=== PATIENT | female | born 1935 | race Caucasian/White ===

== ENCOUNTER 2016-08-14 11:02 | Observation (INO) ==
--- NOTE | 2016-08-14 11:13 | Emergency Department Note ---
Disposition Clinical Impression: Generalized weakness Chest wall contusion Qualifiers: Encounter type: initial encounter Laterality: left Qualified Code(s): S20.212A - Contusion of left front wall of thorax, initial encounter Disposition: Admitted As Inpatient Condition: Fair Referrals: Geoffrey Rudolph MD [Primary Care Provider] - Forms: ED Satisfaction Letter Time of Disposition: 13:19 Fall HPI - General Chief Complaint: ED Fall Stated Complaint: fall Time Seen by Provider: 08/14/16 11:07 Source: patient, EMS Mode of arrival: EMS Limitations: no limitations Nursing Notes Reviewed: Yes Vital Signs Reviewed: Yes - History of Present Illness HPI Narrative: 81-year-old states that she slid off the toilet hitting the paper rack on her left side of her chest. She was seen by her family doctor yesterday but no x- rays were done. She was started on some pain medication today she's dizzy cannot ambulate. Pt Subjective Complaint: fall Onset (ago): day(s) (2 days) Fall From: other (toilet) Fall Witnessed: no Place Fall Occurred: home Loss of Consciousness: none Prolonged Down Time?: no Symptoms Prior to Fall: none Context: tripped/slipped Location of injury: chest Severity: moderate Quality: aching Associated symptoms (after fall): Reports: denies - Related Data Allergies Allergy/AdvReac Type Severity Reaction Status Date / Time No Known Allergies Allergy Unverified 12/12/14 16:35 All systems ED: reviewed and negative except as stated. Constitutional: Denies: fever, chills, weakness, weight change Eyes: Denies: eye pain, eye discharge, vision change ENT ED: Denies: ear pain, throat pain, dental pain, hearing loss, epistaxis, congestion, dysphagia Cardiovascular: Reports: chest pain. Denies: palpitations, dyspnea on exertion , edema, syncope Respiratory: Denies: cough, dyspnea, wheezes, hemoptysis, stridor Gastrointestinal: Denies: abdominal pain, nausea, vomiting, diarrhea, constipation, hematemesis, melena, hematochezia Genitourinary: Denies: dysuria, frequency, hematuria, discharge Musculoskeletal: Denies: back pain, neck pain, arthralgia, myalgia Integumentary: Denies: rash, abrasion, lesions Neurological: Reports: other (Dizziness). Denies: headache, weakness, numbness , paresthesias, confusion, abnormal gait, vertigo Psychiatric: Denies: anxiety, depression, suicidal thoughts, homicidal thoughts , auditory hallucinations, visual hallucinations Endocrine: Denies: fatigue Hematological/Lymphatic: Denies: easy bleeding, easy bruising Allergic/Immunologic: Denies: facial swelling, urticaria Fall PMH - Past Medical History Medical history: Reports: osteoporosis, thyroid disease Surgical history: Reports: cataract Psychiatric history: Reports: no psych history COVER OPERATOR history: Reports: no COVER OPERATOR history - Social History Smoking Status: Never smoker Alcohol use: Reports: none Drug use: Reports: none Physical Exam - General Limitations: no limitations General appearance: alert, in no apparent distress - Head Head exam: atraumatic, normocephalic, normal inspection - Eye Eye exam: Present: normal appearance, PERRL, EOMI - Expanded Eye Exam Pupils: Left: reactive - ENT ENT exam: normal exam, normal oropharynx, mucous membranes moist - Expanded ENT Exam External ear exam: Present: normal external inspection Mouth exam: Present: normal external inspection Teeth exam: Present: normal inspection Throat exam: Present: normal inspection - Neck Neck exam: Present: normal inspection, full ROM, trachea midline - Chest Chest inspection: Present: normal inspection, symmetric chest wall rise, tenderness (Left side) - Respiratory Respiratory exam: Present: normal lung sounds bilaterally - Cardiovascular Cardiovascular exam: Present: regular rate, normal rhythm, normal heart sounds - Abdominal Exam Abdominal exam: Present: soft, Non-Tender. Absent: tenderness, distention, guarding, rebound, rigidity - Extremities Exam Extremities exam: Present: normal inspection, full ROM. Absent: tenderness, pedal edema - Expanded Upper Extremity Exam Shoulder exam: Present: normal inspection, full ROM Arm exam: Present: normal inspection, full ROM Elbow exam: Present: normal inspection, full ROM Forearm/Wrist exam: Present: normal inspection, full ROM Hand exam: Present: normal inspection, full ROM Vascular exam: Normal: capillary refill, radial pulse - Expanded Lower Extremity Exam Hip/Pelvis exam: Present: normal inspection, full ROM Upper leg exam: Present: normal inspection, full ROM Knee exam: Present: normal inspection, full ROM Lower leg exam: Present: normal inspection, full ROM Ankle exam: Present: normal inspection, full ROM Foot/toe exam: Present: normal inspection, full ROM Neurovascular/Tendon exam: Absent: motor deficit, sensory deficit, tendon deficit - Back Exam Back exam: Present: normal inspection, full ROM. Absent: tenderness - Neurological Exam Neurological exam: Present: alert, oriented X3 - Expanded Neurological Exam Patient oriented to: Present: person, place, time Coma Scale Eye Opening: Spontaneous Coma Scale Motor Response: Obeys Commands Coma Scale Verbal Response: Oriented Coma Scale Total: 15 - Psychiatric Psychiatric exam: Present: normal affect, normal mood - Skin Skin exam: Present: warm, dry, intact, normal color Course - Reevaluation(s) Reevaluation #1: 81-year-old female who fell injuring her left chest wall. Patient is generally weak and has no ability to ambulate. She lives by herself with no family members around. For safety she will require admission and PT OT evaluation possible ECF placement. Time: 13:18 - Consultations Consultation #1: Discussed with Dr. Middleton. Time: 13:17 Vital Signs Temperature 97.4 F L 08/14/16 11:08 Pulse Rate 50 08/14/16 11:08 Respiratory Rate 20 08/14/16 11:08 Blood Pressure 136/62 08/14/16 11:08 O2 Sat by Pulse Oximetry 100 08/14/16 11:08 Temperature 97.4 F L 08/14/16 11:08 Pulse Rate 48 08/14/16 12:30 Respiratory Rate 18 08/14/16 12:30 Blood Pressure 120/56 08/14/16 12:30 O2 Sat by Pulse Oximetry 98 08/14/16 12:30 Oxygen Delivery Oxygen Delivery Room Air Fall - Lab Data Lab results reviewed: Yes I reviewed the patient's lab results. Result diagrams: 08/14/16 12:15 08/14/16 12:15 Lab Results 08/14/16 08/14/16 08/14/16 Range/Units 12:15 12:15 12:15 WBC 5.0 (4.3-11.1) K/mcL RBC 3.65 L (3.82-4.97) M/mcL Hgb 11.1 L (11.5-15.4) g/dL Hct 35.7 (35.3-44.9) % MCV 97.8 (83.0-100.0) fL MCH 30.4 (28.0-33.3) pg MCHC 31.1 L (31.6-35.5) g/dL RDW 13.4 (11.5-14.5) % Plt Count 132 L (140-400) K/mcL MPV 9.7 (9.4-12.4) fL Immature Gran % 0.4 (0-4) % Seg Neutrophils % 90.8 % Lymphocytes % 6.6 % Monocytes % 1.8 % Eosinophils % 0.0 % Basophils % 0.4 % Neutrophils # 4.6 (1.6-8.9) K/mcL Lymphocytes # 0.3 L (0.6-4.6) K/mcL Monocytes # 0.1 (0.0-1.3) K/mcL Eosinophils # 0.0 (0.0-0.6) K/mcL Basophils # 0.0 (0.0-0.2) K/mcL Sodium 140 (136-145) mEq/L Potassium 4.0 (3.5-4.5) mEq/L Chloride 103 (98-109) mEq/L Carbon Dioxide 31 H (19-29) mEq/L BUN 18 (7-20) mg/dL Creatinine 0.69 (0.57-1.11) mg/dL Est GFR ( Amer) > 60 (> 60) Est GFR (Non-Af Amer) > 60 (> 60) BUN/Creatinine Ratio 26 (6-26) Glucose 146 H (70-99) mg/dL Calculated Osmolality 295 (280-300) Calcium 9.2 (8.6-10.8) mg/dL Troponin I 0.00 (0-0.03) ng/mL - Radiology Data Radiology results reviewed: Yes I reviewed the patient's radiology results. Cervical Spine CT 08/14/16 11:09 IMPRESSION: No acute abnormality of the cervical spine. D/ / Lenny Ordoñez MD / Lenny Ordoñez MD Interpreting Provider: Lenny Ordoñez MD Chest CT 08/14/16 11:09 IMPRESSION: No acute abnormalities identified. Atherosclerosis to include coronary artery disease. Punctate nonobstructing stone to the mid region of the left kidney. D/ / 08/14/2016 12:02:39 Adebayo Cuba MD / bcarter Interpreting Provider: Adebayo Cuba MD Head CT 08/14/16 11:09 IMPRESSION: No acute intracranial abnormality. D/ / Charles Koo MD / Chalres Koo MD Interpreting Provider: Charles Koo MD - EKG Data EKG attestation: Yes I reviewed and interpreted this EKG. EKG shows normal: sinus rhythm Rate: bradycardia Rhythm: NSR Interpretation: no acute changes NIH Stroke Scale - Level of Consciousness LOC: Alert - LOC Questions LOC Questions: Answers both correctly - LOC Commands LOC Commands: Performs both correctly - Best Gaze Best Gaze: Normal - Visual Visual: No visual loss - Facial Palsy Facial Palsy: Normal - Motor Arms Motor Arm-Left: No drift for 10 seconds Motor Arm-Right: No drift for 10 seconds - Motor Legs Motor Leg-Left: No drift for 5 seconds Motor Leg-Right: No drift for 5 seconds - Limb Ataxia Limb Ataxia: Normal, No Ataxia - Sensory Sensory: Normal - Best Language Best Language: No aphasia - Dysarthria Dysarthria: Normal - Extinction and Inattention Extinction and Inattention: Normal - NIHSS Total Score NIHSS Total Score: 0
[2016-08-14 12:29] LABS: Basophils % 0.4 %; Hematocrit 35.7 % (35.3-44.9); Hemoglobin 11.1 g/dL (11.5-15.4); Immature Granulocytes % 0.4 % (0-4); Lymphocytes # 0.3 K/mcL (0.6-4.6); Lymphocytes % 6.6 %; Mean Corpuscular HGB Conc 31.1 g/dL (31.6-35.5); Mean Corpuscular Hemoglobin 30.4 pg (28.0-33.3); Mean Corpuscular Volume 97.8 fL (83.0-100.0); Mean Platelet Volume 9.7 fL (9.4-12.4); Monocytes # 0.1 K/mcL (0.0-1.3); Monocytes % 1.8 %; Neutrophils # 4.6 K/mcL (1.6-8.9); Platelet Count 132 K/mcL (140-400); Red Blood Count 3.65 M/mcL (3.82-4.97); Red Cell Distribution Width 13.4 % (11.5-14.5); Segmented Neutrophils % 90.8 %
[2016-08-14 12:39] LABS: BUN/Creatinine Ratio 26 (6-26); Blood Urea Nitrogen 18 mg/dL (7-20); Calcium 9.2 mg/dL (8.6-10.8); Carbon Dioxide 31 mEq/L (19-29); Chloride 103 mEq/L (98-109); Glucose 146 mg/dL (70-99); Osmolality,Calculated 295 (280-300); Sodium 140 mEq/L (136-145); eGFR For African Americans > 60 (> 60); eGFR For Non-African Americans > 60 (> 60)
--- NOTE | 2016-08-14 15:15 | Internal Med History&Physical ---
Date of Encounter: 08/14/16 Time of Encounter: 15:12 Assessment and Plan (1) Fall Current visit: Yes Status: Acute History of recurrent falls. head, neck and CT chest does not show any acute pathology with no fractures. will need placement to inpt. rehab given high fall risk. 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 Qualifiers: Hypothyroidism type: unspecified Qualified Code(s): E03.9 - Hypothyroidism , unspecified (4) Osteoporosis Current visit: Yes Status: Acute We will continue home medications. Qualifiers: Osteoporosis type: unspecified Presence of current pathological fracture: without current pathological fracture Qualified Code(s): M81.0 - Age-related osteoporosis without current pathological fracture Internal Medicine - H&P: HPI Chief complaint: fall Admitted From: Home Plans for Post Hospital Care: Home History of present illness: Ms. Wakefield is a 81 year old female with past medical history of hypothyroidism , osteoporosis and hyperlipidemia was presented to ED status post fall. She said she fell today morning. she slid off the toilet hitting the paper rack on her left side of her chest. She was seen by her family doctor yesterday but no x-rays were done. She was started on some pain medication. she denies hitting her head or LOC. However she says the pain is worse and today she's dizzy and cannot ambulate. She denies any cough or fever or shortness of breath. No loss of consciousness or seizures. She lives by herself with no home health or any other assistance. At this time she is being admitted for possible need for placement given unsafe discharge as she is high fall risk. Past Med Surg Social Fam HX - Past Medical History Medical history: osteoporosis, thyroid disease Psychiatric history: no psych history - Past Surgical History Surgical History: cataract - Social History Smoking Status: Never smoker Smokeless Tobacco Status: No Alcohol use: none Drug use: none Internal Medicine - H&P: Meds Acetaminophen w/Cod 300-30 mg [Tylenol w/Codeine #3] 1 tab PO BID PRN 08/14/16 [ History] Alendronate Sodium [Fosamax] 70 mg PO MO 08/14/16 [History] Calcium Carbonate/Vitamin D3 [Calcium 500-Vit D3 600 Tablet] 1 tab PO DAILY 04/20 [History] Levothyroxine [Synthroid] 25 mcg PO DAILY 08/14/16 [History] Multivit-Min/Iron/Folic/Lutein [Centrum Silver Women Tablet] 1 tab PO DAILY 04/20 [History] [place]-3/Dha/Epa/Fish Oil [Fish Oil 1,000 mg Softgel] 1,000 mg PO DAILY 08/14/16 [History] Allergies Erythromycin Base Adverse Reaction (Verified 08/14/16 14:20) Diarrhea All Systems PM: A 10-system review of systems was performed and is negative for pertinent findings except as documented above in the HPI. - Constitutional Constitutional: lethargy, weakness - EENT Eyes: no change in vision, no discharge, no pain, no photophobia Ears: no ear discharge, no ear pain, no tinnitus Nose, mouth and throat: no dysphagia, no nasal discharge, no neck pain, no sore throat - Cardiovascular Cardiovascular ROS IM: no chest pain, no diaphoresis, no dyspnea, no lightheadedness, no palpitations, no syncope - Respiratory Respiratory: no cough, no dyspnea, no wheezing, no excessive phlegm production - Gastrointestinal Gastrointestinal: no abdominal pain, no diarrhea, no hematemesis, no hematochezia, no melena, no nausea, no vomiting - Genitourinary Genitourinary: no change in urinary stream, no dysuria, no flank pain, no hematuria - Musculoskeletal Musculoskeletal ROS IM: no numbness, no tingling - Constitutional Vitals: Temp Pulse Resp BP Pulse Ox 97.4 F L 53 18 116/48 100 08/14/16 11:08 08/14/16 13:30 08/14/16 14:41 08/14/16 14:41 08/14/16 13:30 General appearance: Present: A&O X 3, no acute distress Exam: - Head Head exam: atraumatic, normocephalic, normal inspection - Eye Eye exam: Present: normal appearance, PERRL, EOMI - ENT ENT exam: normal exam, normal oropharynx, mucous membranes moist - Neck Neck exam: Present: normal inspection, full ROM, trachea midline - Respiratory Respiratory exam: Present: normal lung sounds bilaterally - Cardiovascular Cardiovascular exam: Present: regular rate, normal rhythm, normal heart sounds - Abdominal Exam Abdominal exam: Present: soft, Non-Tender. Absent: tenderness, distention, guarding, rebound, rigidity - Extremities Exam Extremities exam: Present: normal inspection, full ROM. Absent: tenderness, pedal edema - - Back Exam Back exam: Present: lateral scoliosis, full ROM. Absent: tenderness - Neurological Exam Neurological exam: Present: alert, oriented X3 - Psychiatric Psychiatric exam: Present: normal affect, normal mood - Skin Skin exam: Present: warm, dry, intact, normal color Internal Med - H&P Results - Labs CBC & Chem 7: 08/14/16 12:15 08/14/16 12:15
[2016-08-14] MEDS ORDERED: Ketorolac 30 MG/ML VIAL IVP PRN (15:19)
[2016-08-14] MEDS ORDERED: Naloxone 0.4 MG/ML INJ IVP PRN (15:19)
[2016-08-14] MEDS ORDERED: *HR* Acetaminophen w/Cod 300-30 mg 1 TAB TABLET PO PRN (15:22)
[2016-08-15] MEDS: *HR* Enoxaparin 40 MG/0.4 ML SYRINGE SQ SCH (05:24)
[2016-08-15 05:52] LABS: Basophils % 0.5 %; Eosinophils % 0.8 %; Hematocrit 31.6 % (35.3-44.9); Immature Granulocytes % 0.3 % (0-4); Lymphocytes # 0.8 K/mcL (0.6-4.6); Lymphocytes % 22.2 %; Mean Corpuscular HGB Conc 31.6 g/dL (31.6-35.5); Mean Corpuscular Hemoglobin 31.2 pg (28.0-33.3); Mean Corpuscular Volume 98.4 fL (83.0-100.0); Mean Platelet Volume 10.3 fL (9.4-12.4); Monocytes # 0.4 K/mcL (0.0-1.3); Monocytes % 10.3 %; Neutrophils # 2.5 K/mcL (1.6-8.9); Platelet Count 123 K/mcL (140-400); Red Blood Count 3.21 M/mcL (3.82-4.97); Red Cell Distribution Width 13.8 % (11.5-14.5); Segmented Neutrophils % 65.9 %
[2016-08-15 06:01] LABS: BUN/Creatinine Ratio 29 (6-26); Blood Urea Nitrogen 21 mg/dL (7-20); Calcium 9.1 mg/dL (8.6-10.8); Carbon Dioxide 30 mEq/L (19-29); Chloride 104 mEq/L (98-109); Glucose 82 mg/dL (70-99); Osmolality,Calculated 292 (280-300); Phosphorous 2.1 mg/dL (2.3-4.7); Sodium 140 mEq/L (136-145); eGFR For African Americans > 60 (> 60); eGFR For Non-African Americans > 60 (> 60)
--- NOTE | 2016-08-15 07:05 | Electrocardiograph Report ---
[address] [place] [address] Test Date: 2016-08-14 Pat Name: Ju Wakefield Department: 102 Room: 3A11 Gender: F Acute Care Physician: : [id number] Requested By: Sami Blevins Order Number: [id number] Reading MD: Errol Vieyra MD Measurements Intervals Pala Rate: 49 P: 65 WV: 192 QRS: 30 QRSD: 90 T: 55 QT: 457 QTc: 427 Interpretive Statements SINUS BRADYCARDIA LEFT ATRIAL ABNORMALITY Electronically Signed On 08-15-2016 7:04:07 EDT by Errol Vieyra MD
[2016-08-15] MEDS: Levothyroxine 25 MCG TABLET PO SCH (08:13)
[2016-08-15] MEDS ORDERED: VITAMIN D3 PO SCH (09:00)
[2016-08-15] MEDS ORDERED: CALCIUM CARBONATE PO SCH (09:00)
--- NOTE | 2016-08-15 11:15 | Discharge Summary ---
Date of Encounter: 08/15/16 Time of Encounter: 11:11 - Discharge Diagnosis (1) Fall Priority: Primary Status: Acute Qualifiers: Encounter type: initial encounter Qualified Code(s): W19.XXXA - Unspecified fall, initial encounter (2) Chest wall contusion Priority: Primary Status: Acute Qualifiers: Encounter type: initial encounter Laterality: left Qualified Code(s): S20.212A - Contusion of left front wall of thorax, initial encounter (3) Frail elderly Priority: Secondary Status: Chronic (4) Hypothyroidism Priority: Secondary Status: Chronic Qualifiers: Hypothyroidism type: unspecified Qualified Code(s): E03.9 - Hypothyroidism , unspecified (5) Osteoporosis Priority: Secondary Status: Chronic Qualifiers: Osteoporosis type: unspecified Presence of current pathological fracture: without current pathological fracture Qualified Code(s): M81.0 - Age-related osteoporosis without current pathological fracture - Discharge Medications Prescriptions: Acetaminophen w/Cod 300-30 mg [Tylenol w/Codeine #3] 1 tab PO Q4HR PRN #14 tablet PRN Reason: Mild To Moderate Pain Home Medications: Acetaminophen w/Cod 300-30 mg [Tylenol w/Codeine #3] 1 tab PO BID PRN 08/14/16 [ History] Alendronate Sodium [Fosamax] 70 mg PO MO 08/14/16 [History] Calcium Carbonate/Vitamin D3 [Calcium 500-Vit D3 600 Tablet] 1 tab PO DAILY 04/20 [History] Levothyroxine [Synthroid] 25 mcg PO DAILY 08/14/16 [History] Multivit-Min/Iron/Folic/Lutein [Centrum Silver Women Tablet] 1 tab PO DAILY 04/20 [History] [place]-3/Dha/Epa/Fish Oil [Fish Oil 1,000 mg Softgel] 1,000 mg PO DAILY 08/14/16 [History] Acetaminophen w/Cod 300-30 mg [Tylenol w/Codeine #3] 1 tab PO Q4HR PRN #14 tablet 08/15/16 [Rx] Allergies/Adverse Reactions: Allergies Erythromycin Base Adverse Reaction (Verified 08/14/16 14:20) Diarrhea Date of admission: 08/14/16 14:30 Primary care physician: Geoffrey Rudolph MD Consults: 08/14/16 15:31 Consult to Nutrition [CONS] Routine Comment: underweight, decreased appetite Consulting Provider: NUTRITION Reason for Dietary Consult: MST Score - Patient Status Disposition: Transfer Inpatient Rehab Fac Condition: Good Functional capacity at discharge: uses cane/walker Overall status at discharge: patient is progressing back to baseline - Discharge Instructions Follow Up With: Geoffrey Rudolph MD [Primary Care Provider] - (F/U IN 1 WEEK) - Diet and Activity Activity: as per physical therapy Diet: regular diet Interval History: Patient reports improvement of left sided rib pain. Hospital course: Ms. Wakefield is a 81 year old female with past medical history hypothyroidism, osteoporosis and hyperlipidemia who presented after a mechanical fall at home. CT of the chest, head and neck showed no acute process. She has severe scoliosis since age 11. She denied any dizziness, chest pain, syncope, shortness of breath or headaches prior to falling. Physical therapy and patient had therapy recommended patient to go to rehabilitation. Patient agreed with the plan. PLAN: rehab placement. - Time Spent with Patient Total time spent providing and/or coordinating discharge services: - Constitutional Vitals: Temp Pulse Resp BP Pulse Ox 98.3 F 52 18 99/56 98 08/15/16 07:13 08/15/16 07:13 08/15/16 07:13 08/15/16 07:13 08/15/16 07:13 General appearance: Present: A&O X 3, no acute distress - Neck Neck exam general surgery: Present: supple, trachea midline. Absent: lymphadenopathy - Respiratory Respiratory exam: Present: decreased breath sounds (at Left lung field due to scoliosis.) - Cardiovascular Cardiovascular exam: Present: RRR - GI/Abdominal GI/Abdominal exam: Present: normal bowel sounds, soft. Absent: distended, tenderness - Extremities Exam Extremities exam: Absent: pedal edema - Back Exam Additional comments: Severe scoliosis. - Neurological Exam Neurological exam: Present: alert, oriented X3, strengths equal and symetr throughout. Absent: facial droop, speech deficit - Skin Skin exam: Absent: rash
--- NOTE | 2016-08-15 11:24 | Physician Discharge Referral ---
ExtendedCare Referral Info Transfer To: [facility] Provider in Charge: PAOLA Provider in Charge after Transfer: PCP Institutional Level of Care: Skilled - Diagnosis (1) Fall Status: Acute (2) Chest wall contusion Status: Acute (3) Frail elderly Status: Chronic (4) Hypothyroidism Status: Chronic (5) Osteoporosis Status: Chronic - Transfer Medications Prescriptions: Acetaminophen w/Cod 300-30 mg [Tylenol w/Codeine #3] 1 tab PO Q4HR PRN #14 tablet PRN Reason: Mild To Moderate Pain Home Medications: Acetaminophen w/Cod 300-30 mg [Tylenol w/Codeine #3] 1 tab PO BID PRN 08/14/16 [ History] Alendronate Sodium [Fosamax] 70 mg PO MO 08/14/16 [History] Calcium Carbonate/Vitamin D3 [Calcium 500-Vit D3 600 Tablet] 1 tab PO DAILY 04/20 [History] Levothyroxine [Synthroid] 25 mcg PO DAILY 08/14/16 [History] Multivit-Min/Iron/Folic/Lutein [Centrum Silver Women Tablet] 1 tab PO DAILY 04/20 [History] [place]-3/Dha/Epa/Fish Oil [Fish Oil 1,000 mg Softgel] 1,000 mg PO DAILY 08/14/16 [History] Acetaminophen w/Cod 300-30 mg [Tylenol w/Codeine #3] 1 tab PO Q4HR PRN #14 tablet 08/15/16 [Rx] Allergies/Adverse Reactions: Allergies Erythromycin Base Adverse Reaction (Verified 08/14/16 14:20) Diarrhea - Respiratory Orders Smoking Cessation: Smoking cessation has been advised. For more information, call the [place] Tobacco Quit Line at 1-795-MSCD-NOW. - Advance Directives Code Status: Full Code - Mobility Orders Ambulate - Rehabiliation Orders Rehab Potential: Fair Rehab Orders: Evaluation for Physical Therapy, Evaluation for Occupational Therapy - Diet Orders Regular CERTIFICATION: I certify that the transfer of the above named patient to an Extended Care Facility is necessary for the continuing treatment of the diagnosis listed. The above information is true and accurate reflection of patient's current condition. Confidential - Redisclosure prohibited without a patient's written consent.
[2016-08-15] MEDS ORDERED: Ketorolac 30 MG/ML VIAL IVP ONE (20:54)
[2016-08-16] MEDS: *HR* Enoxaparin 40 MG/0.4 ML SYRINGE SQ SCH (05:19)
[2016-08-16 07:13] VITALS: BP 97/54
[2016-08-16] MEDS: Levothyroxine 25 MCG TABLET PO SCH (07:36)
--- NOTE | 2016-08-16 09:42 | Internal Med Progress Note ---
Date of Encounter: 08/16/16 Time of Encounter: 08:00 - Assessment and plan (1) Fall Status: Acute Assessment and plan: Mechanical fall due to imbalance. Patient with severe scoliosis since age 11. PTOT following. Awaiting rehabilitation placement. Qualifiers: Encounter type: initial encounter Qualified Code(s): W19.XXXA - Unspecified fall, initial encounter (2) Chest wall contusion Status: Acute Assessment and plan: Continue pain medications. Improved. Qualifiers: Encounter type: initial encounter Laterality: left Qualified Code(s): S20.212A - Contusion of left front wall of thorax, initial encounter (3) Frail elderly Status: Chronic (4) Hypothyroidism Status: Chronic Qualifiers: Hypothyroidism type: unspecified Qualified Code(s): E03.9 - Hypothyroidism , unspecified (5) Osteoporosis Status: Chronic Qualifiers: Osteoporosis type: unspecified Presence of current pathological fracture: without current pathological fracture Qualified Code(s): M81.0 - Age-related osteoporosis without current pathological fracture - Subjective Interval history: Patient states mild left-sided rib pain that is better compared to admission. She is eating well. - Constitutional Vitals: Temp Pulse Resp BP Pulse Ox 97.7 F 51 18 97/54 98 08/16/16 06:59 08/16/16 06:59 08/16/16 06:59 08/16/16 06:59 08/16/16 06:59 General appearance: Present: cooperative, A&O X 3, pleasant, no acute distress, answers questions appropriately - Eye Eye exam: Present: PERRL, sclera anicteric - Neck Neck exam general surgery: Present: supple, trachea midline. Absent: lymphadenopathy - Respiratory Respiratory exam: Present: CTAB - Cardiovascular Cardiovascular exam: Present: RRR - GI/Abdominal GI/Abdominal exam: Present: normal bowel sounds, soft. Absent: distended, tenderness - Extremities Exam Extremities exam: Absent: pedal edema - Back Exam Additional comments: Severe scoliosis. - Neurological Exam Neurological exam: Present: alert, oriented X3, no focal deficits, strengths equal and symetr throughout. Absent: facial droop, speech deficit - Skin Skin exam: Absent: rash Internal Medicine: Result - Labs CBC & Chem 7: 08/15/16 05:15 08/15/16 05:15 Consult Discharge Plan - Plan Referrals: Geoffrey Rudolph MD [Primary Care Provider] - (F/U IN 1 WEEK) Prescriptions: Acetaminophen w/Cod 300-30 mg [Tylenol w/Codeine #3] 1 tab PO Q4HR PRN #14 tablet PRN Reason: Mild To Moderate Pain
[2016-08-19] MEDS ORDERED: (Alendronate Sodium [Fosamax] 70 MG) PO SCH (15:20)
== END 2016-08-16 11:37 ==
LOC: EMEROO 11:02 → 3ANU 11:02
PROVIDERS: ADMIT Internal Medicine Endocrinology, Diabetes & Metabolism; ATTEND Internal Medicine

== ENCOUNTER 2018-02-17 06:45 | Observation (INO) ==
--- NOTE | 2018-02-17 07:02 | Emergency Department Note ---
Disposition Clinical Impression: Cachectic Fall Qualifiers: Encounter type: initial encounter Qualified Code(s): W19.XXXA - Unspecified fall, initial encounter Disposition: Admitted As Inpatient Condition: Good Time of Disposition: 10:10 General Adult HPI - General Chief complaint: ED Fall Stated complaint: Fall lower back pain Time Seen by Provider: 02/17/18 06:59 Source: patient, EMS Limitations: no limitations Nursing Notes Reviewed: Yes Vital Signs Reviewed: Yes - History of Present Illness HPI Narrative: 83-year-old female presents emergency department with concern for fall at home. Patient was reported to be home by herself. Was found by neighbor who checks on her daily to bend down. Patient reporting pain in her hips. Reports that she still cannot walk. Does not know why she fell. Patient reports frequent wetting the bed recently. Patient still states that she eats. Pain Scale: 9 - Related Data Home Medications Medication Instructions Recorded Confirmed Alendronate Sodium [Fosamax] 70 mg PO MO 08/14/16 02/17/18 Calcium Carbonate/Vitamin D3 1 tab PO DAILY 08/14/16 02/17/18 [Calcium 500-Vit D3 600 Tablet] Levothyroxine [Synthroid] 25 mcg PO DAILY 08/14/16 02/17/18 Multivit-Min/Iron/Folic/Lutein 1 tab PO DAILY 08/14/16 02/17/18 [Centrum Silver Women Tablet] [place]-3/Dha/Epa/Fish Oil [Fish Oil 1,000 mg PO DAILY 08/14/16 02/17/18 1,000 mg Softgel] Cyclosporine [Restasis] 1 drop BOTH EYES DAILY 02/17/18 02/17/18 Allergies Allergy/AdvReac Type Severity Reaction Status Date / Time Erythromycin Base AdvReac Diarrhea Verified 08/14/16 14:20 All systems ED: reviewed and negative except as stated. Review of Systems: As Per HPI Constitutional: Denies: fever Cardiovascular: Denies: chest pain Respiratory: Denies: cough, dyspnea Gastrointestinal: Denies: abdominal pain, nausea, vomiting Genitourinary: Reports: dysuria. Denies: urgency, frequency Musculoskeletal: Reports: other (Hip pain). Denies: back pain Integumentary: Denies: rash Neurological: Denies: headache, weakness, numbness, paresthesias Past Medical History - Past Medical History Medical history: Reports: osteoporosis, thyroid disease Surgical history: Reports: cataract Psychiatric history: Reports: no psych history SENIOR INVESTIGATOR history: Reports: no SENIOR INVESTIGATOR history - Social History Smoking Status: Never smoker Smokeless Tobacco Status: No Alcohol use: Reports: none Drug use: Reports: none Physical Exam - General Limitations: no limitations General appearance: alert - Head Head exam: normocephalic - Eye Eye exam: Present: EOMI. Absent: scleral icterus - ENT ENT exam: normal oropharynx, mucous membranes moist - Neck Neck exam: Present: trachea midline - Chest Chest inspection: Present: symmetric chest wall rise - Respiratory Respiratory exam: Present: normal lung sounds bilaterally. Absent: respiratory distress, accessory muscle use - Cardiovascular Cardiovascular exam: Present: regular rate, normal rhythm, normal heart sounds - Abdominal Exam Abdominal exam: Present: soft, Non-Tender. Absent: distention, guarding, rebound, rigidity - Extremities Exam Extremities exam: Present: full ROM - Expanded Lower Extremity Exam Hip/Pelvis exam: Present: tenderness - Back Exam Back exam: Absent: vertebral tenderness - Neurological Exam Neurological exam: Present: alert, CN II-XII intact - Psychiatric Psychiatric exam: Present: normal affect, normal mood Course Vital Signs Temperature 97.5 F L 02/17/18 06:50 Pulse Rate 70 02/17/18 06:50 Respiratory Rate 18 02/17/18 06:50 Blood Pressure 148/85 02/17/18 06:50 O2 Sat by Pulse Oximetry 95 02/17/18 06:50 Temperature 97.3 F L 02/17/18 11:29 Pulse Rate 56 02/17/18 11:29 Respiratory Rate 16 02/17/18 11:29 Blood Pressure 116/55 02/17/18 11:29 O2 Sat by Pulse Oximetry 97 02/17/18 11:29 Oxygen Delivery Oxygen Delivery Room Air Medical Decision Making - [facility] Narrative Medical decision making narrative: 83-year-old female presents emergency department with concern for fall. EKG did not reveal any ischemic changes. Troponin was negative. Creatinine was within normal limits. We obtain CT scan of the head which revealed no intracranial abnormality. Did the neck as well and this was negative as well. Patient very cachectic and weak appearing on physical exam. She is only 31 kg. At this time, do not think this patient is fit for discharge home as she has no support other than a neighbor who sees her daily. Patient may require senior care facility. So with a hospice agree with the plan. Patient hemodynamically stable not in any acute distress at time of admission - Lab Data Result diagrams: 02/17/18 07:25 02/17/18 07:25 Lab Results 02/17/18 02/17/18 02/17/18 Range/Units 07:25 07:25 08:21 WBC 6.1 (4.3-11.1) K/mcL RBC 3.58 L (3.82-4.97) M/mcL Hgb 11.3 L (11.5-15.4) g/dL Hct 36.4 (35.3-44.9) % MCV 101.7 H (83.0-100.0) fL MCH 31.6 (28.0-33.3) pg MCHC 31.0 L (31.6-35.5) g/dL RDW 14.4 (11.5-14.5) % Plt Count 123 L (140-400) K/mcL MPV 9.8 (9.4-12.4) fL Seg Neutrophils % 82.0 % Band Neutrophils % 4.0 (0-4) % Lymphocytes % 8.0 % Monocytes % 4.0 % Eosinophils % 2.0 % Neutrophils # 5.3 (1.6-8.9) K/mcL Lymphocytes # 0.5 L (0.6-4.6) K/mcL Monocytes # 0.2 (0.0-1.3) K/mcL Eosinophils # 0.1 (0.0-0.6) K/mcL Platelet Estimate Normal (Normal) Anisocytosis 1+ A (Not Present) Sodium 146 H (136-145) mEq/L Potassium 3.6 (3.5-5.1) mEq/L Chloride 103 (98-107) mEq/L Carbon Dioxide 38 H (23-29) mEq/L BUN 26 H (8-23) mg/dL Creatinine 0.69 (0.60-1.20) mg/dL Est GFR ( Amer) > 60 (> 60) Est GFR (Non-Af Amer) > 60 (> 60) BUN/Creatinine Ratio 38 H (6-26) Glucose 132 H (70-105) mg/dL Calculated Osmolality 309 H (280-300) Calcium 9.5 (8.6-10.3) mg/dL Creatine Kinase 101 (30-223) Units/L Troponin I < 0.03 (< 0.04) ng/mL Urine Color Yellow (Yellow) Urine Clarity Cloudy A (Clear) Urine pH 7.5 (5.0-8.0) pH Units Ur Specific [place] 1.015 (1.010-1.025) Urine Protein Negative (Neg-Trace) mg/dL Urine Glucose (UA) Normal (Normal) mg/dL Urine Ketones Negative (Negative) mg/dL Urine Blood Moderate H (Negative) Urine Nitrite Negative (Negative) Urine Bilirubin Negative (Negative) Urine Urobilinogen Normal (Normal) mg/dL Ur Leukocyte Esterase Negative (Negative) Urine Microscopic RBC 50-100 H (0-3) per hpf Urine Microscopic WBC 0-3 (0-3) per hpf Ur Squamous Epith Cells Few (None-Few) per lpf Urine Bacteria None Seen (None-Few) per hpf Hyaline Casts None Seen (None-Few) per lpf Ur Culture Indicated? NO (NO) - EKG Data EKG #1 EKG attestation: Yes I reviewed and interpreted this EKG. EKG results narrative: 0843 Heart rate 57 bpm, purulent of 162 ms, QRS duration 90 ms, QT 442 ms, QTC 432 ms , normal axis. Sinus rhythm ventricular rate of 57 bpm. No evidence of any ischemic ST changes on this EKG. Attestation Statement - Attestation Attestation: I, Steven Aguilera, examined this patient and my medical decision-making was reviewed with the KILN DOOR BUILDER/PA/Advanced Practice Nurse/Resident Physician. I agree with the documented findings, disposition and treatment plan as described except to the extent set forth below. 83-year-old female presents emergency department for further evaluation after fall at home. Patient states she slipped on the floor as she was walking the bathroom. She states she has been urinating more frequently during the night over the past few days. Patient is cachectic on initial evaluation weighing almost 65 pounds, she states that she mostly only eats cheese sandwiches. Patient is unable to ambulate in the emergency department. She will be admitted to the hospital for further care and evaluation and likely placement in extended care facility.
[2018-02-17 07:51] LABS: Eosinophils # 0.1 K/mcL (0.0-0.6); Hematocrit 36.4 % (35.3-44.9); Hemoglobin 11.3 g/dL (11.5-15.4); Mean Corpuscular Hemoglobin 31.6 pg (28.0-33.3); Mean Corpuscular Volume 101.7 fL (83.0-100.0); Mean Platelet Volume 9.8 fL (9.4-12.4); Platelet Count 123 K/mcL (140-400); Red Blood Count 3.58 M/mcL (3.82-4.97); Red Cell Distribution Width 14.4 % (11.5-14.5)
[2018-02-17 08:17] LABS: Lymphocytes # 0.5 K/mcL (0.6-4.6); Monocytes # 0.2 K/mcL (0.0-1.3); Neutrophils # 5.3 K/mcL (1.6-8.9)
[2018-02-17 08:18] LABS: Anisocytosis 1+ (Not Present); Platelet Estimate Normal (Normal)
[2018-02-17 08:25] LABS: BUN/Creatinine Ratio 38 (6-26); Blood Urea Nitrogen 26 mg/dL (8-23); Calcium 9.5 mg/dL (8.6-10.3); Carbon Dioxide 38 mEq/L (23-29); Chloride 103 mEq/L (98-107); Glucose 132 mg/dL (70-105); Osmolality,Calculated 309 (280-300); Potassium 3.6 mEq/L (3.5-5.1); Sodium 146 mEq/L (136-145); Troponin I < 0.03 ng/mL (< 0.04); eGFR For Non-African Americans > 60 (> 60)
[2018-02-17 08:31] LABS: Bilirubin,Urine Negative (Negative); Blood,Urine Moderate (Negative); Clarity,Urine Cloudy (Clear); Color,Urine Yellow (Yellow); Glucose,Urine (UA) Normal (Normal); Ketones,Urine Negative (Negative); Leukocyte Esterase,Urine Negative (Negative); Nitrite,Urine Negative (Negative); PH,Urine 7.5 pH Units (5.0-8.0); Protein,Urine Negative (Neg-Trace); Specific Gravity,Urine 1.015 (1.010-1.025); Urobilinogen,Urine Normal (Normal)
[2018-02-17 08:34] LABS: Bacteria,Urine None Seen per hpf (None-Few); Hyaline Casts,Urine None Seen per lpf (None-Few); RBC,Urine 50-100 per hpf (0-3); Squamous Epithelial Cell,Urine Few per lpf (None-Few); WBC,Urine 0-3 per hpf (0-3)
[2018-02-17] MEDS ORDERED: Acetaminophen 325 MG TABLET PO ONE (08:40)
[2018-02-17 09:19] LABS: Creatine Kinase 101 Units/L (30-223)
[2018-02-17] MEDS ORDERED: traMADol 50 MG TABLET PO PRN (09:28)
[2018-02-17] MEDS ORDERED: Naloxone 0.4 MG/ML INJ IVP PRN (09:28)
--- NOTE | 2018-02-17 10:34 | Internal Med History&Physical ---
Date of Encounter: 02/17/18 Time of Encounter: 10:31 Internal Medicine - H&P: HPI Chief complaint: Fall Admitted From: Home Plans for Post Hospital Care: Home History of present illness: Ms. Wakefield is a 83 year old female past medical history significant for hypothyroidism. Patient presented to the emergency room from home after falling at home. Patient reports that today morning she got up to go to the restroom, and on her way to the restroom her legs just gave up and she fell to the floor, and she could not get up for which she pushed her life alert button and the ambulance brought her to the emergency room. The patient denies dizziness, lightheadedness, or palpitation. She reports generalized weakness, denies loss of consciousness or hitting her head. Patient denies recent similar episode of falls. She reports that she lives alone and is responsible for making her own meals. Patient denies fever, chills or productive cough. Denies abdominal pain, diarrhea or constipation. But reports urinary incontinence. Denies dysuria or blood in her urine as well as urgency. Past Med Surg Social Fam HX - Past Medical History Medical history: osteoporosis, thyroid disease Additional medical history: scoliosis Psychiatric history: no psych history - Past Surgical History Surgical History: cataract - Social History Smoking Status: Never smoker Smokeless Tobacco Status: No Alcohol use: none Drug use: none Internal Medicine - H&P: Meds Alendronate Sodium [Fosamax] 70 mg PO MO 08/14/16 [History] Calcium Carbonate/Vitamin D3 [Calcium 500-Vit D3 600 Tablet] 1 tab PO DAILY 04/20 [History] Levothyroxine [Synthroid] 25 mcg PO DAILY 08/14/16 [History] Multivit-Min/Iron/Folic/Lutein [Centrum Silver Women Tablet] 1 tab PO DAILY 04/20 [History] [place]-3/Dha/Epa/Fish Oil [Fish Oil 1,000 mg Softgel] 1,000 mg PO DAILY 08/14/16 [History] Cyclosporine [Restasis] 1 drop BOTH EYES DAILY 02/17/18 [History] 3 Allergy/AdvReac Type Severity Reaction Status Date / Time Erythromycin Base AdvReac Diarrhea Verified 08/14/16 14:20 All Systems PM: A 10-system review of systems was performed and is negative for pertinent findings except as documented above in the HPI. - Constitutional Constitutional: falls, weakness, weight loss, no chills, no fatigue, no fever(s) - EENT Eyes: no floaters Nose, mouth and throat: no dry mouth - Cardiovascular Cardiovascular ROS IM: no chest pain, no dyspnea, no dyspnea on exertion, no edema, no paroxysmal nocturnal dyspnea, no syncope - Respiratory Respiratory: no cough, no dyspnea, no wheezing, no pain on inspiration, no chest congestion - Gastrointestinal Gastrointestinal: no abdominal pain, no diarrhea, no dysphagia, no loose stools , no melena, no nausea, no vomiting - Genitourinary Genitourinary: no change in urinary stream, no difficulty urinating, no dysuria , no hematuria, no nocturia - Musculoskeletal Musculoskeletal ROS IM: muscle weakness, no back pain, no muscle cramps, no neck pain, no numbness - Neurological Neurological ROS: weakness, no confusion - Psychiatric Psychiatric: no anxiety, no depression - Endocrine Endocrine IM: no cold intolerance, no fatigue (All other review of system negative.) - Constitutional Vitals: Temp Pulse Resp BP Pulse Ox 97.5 F L 64 15 130/61 96 02/17/18 06:50 02/17/18 09:51 02/17/18 09:51 02/17/18 09:51 02/17/18 09:51 Exam: General: Patient is alert, oriented x4. In mild distress due to weakness. Cachectic Head: atraumatic, normocephalic, temporal wasting. Eye: normal appearance, PERRL, no scleral icterus, no conjunctival injection ENT: mucous membranes dry, normal external ear exam Respiratory: Clear breath sounds auscultation bilaterally, no wheezing, rales or crackles. Cardiovascular: RRR, normal s1 and s2, No rubs, gallops, or murmors. Abdomen: Bowel sounds present normoactive x-4 quadrants. Abdomen is soft, nondistended. No guarding or rebound. No organomegaly noted. Musculoskeletal: Scoliosis. Spontaneously moving all extremities. no edema, no calf tenderness. Strength is 5/5 in the upper and lower extr. Skin: warm, dry, intact. Neuro: Cranial nerves 2-12 is intact. Psych: Patient's affect is normal Internal Med - H&P Results - Labs CBC & Chem 7: 02/17/18 07:25 02/17/18 07:25 - Assessment and plan (1) Fall Current Visit: Yes Status: Acute Assessment and plan: Possible due to generalized weakness. Patient malnourish, cachectic. Mildly dehydrated. Plan Fall precaution PT/OT r/o orthostatic hypotension Gentle hydration with D5/NS@ 75msl/hr financial services consultant consult as patient is not safe to be discharge home. Would benefit from being placed at a ECF. Head ct skelethal survery to r/o factures Qualifiers: Encounter type: initial encounter Qualified Code(s): W19.XXXA - Unspecified fall, initial encounter (2) Severe protein-calorie malnutrition Current Visit: Yes Status: Acute Assessment and plan: Nutritional consult. Meals supplements with ensure. (3) Frail elderly Current Visit: No Status: Chronic Assessment and plan: Plan of care as per #1. (4) Hypothyroidism Current Visit: No Status: Chronic Assessment and plan: We will resume patient home dose of levothyroxine. f/u TSH, free T4. Qualifiers: Hypothyroidism type: unspecified Qualified Code(s): E03.9 - Hypothyroidism , unspecified (5) Osteoporosis Current Visit: No Status: Chronic Qualifiers: Osteoporosis type: unspecified Presence of current pathological fracture: without current pathological fracture Qualified Code(s): M81.0 - Age-related osteoporosis without current pathological fracture (6) Hematuria Current Visit: Yes Status: Acute Assessment and plan: Most likely traumatic following a straight catch. consider repeating UA. If still patient has hematuria consider Urology consult. Qualifiers: Hematuria type: unspecified type Qualified Code(s): R31.9 - Hematuria, unspecified - Time Spent With Patient Total time spent is greater than 50% in coordination of care (as documented) at patient's floor/unit and/or counseling patient: 25 - 35 minutes
[2018-02-17 11:50] LABS: Albumin 3.8 g/dL (3.5-5.7); Albumin/Globulin Ratio 1.6 (1.1-2.2); Bilirubin,Direct 0.1 mg/dL (0.0-0.2); Bilirubin,Indirect 0.4 mg/dL (0.0-1.2); Bilirubin,Total 0.5 mg/dL (0.3-1.0); Globulin 2.4 g/dL (2.4-3.5); Total Protein 6.2 g/dL (6.4-8.9)
[2018-02-17] MEDS: D5% in 0.9% NACL 1,000 ML IVC SCH (13:40)
[2018-02-18] MEDS: D5% in 0.9% NACL 1,000 ML IVC SCH (03:14)
[2018-02-18 05:52] LABS: BUN/Creatinine Ratio 36 (6-26); Blood Urea Nitrogen 22 mg/dL (8-23); Calcium 8.7 mg/dL (8.6-10.3); Carbon Dioxide 35 mEq/L (23-29); Chloride 109 mEq/L (98-107); Glucose 115 mg/dL (70-105); Osmolality,Calculated 308 (280-300); Phosphorous 1.9 mg/dL (2.7-4.5); Potassium 3.8 mEq/L (3.5-5.1); Sodium 147 mEq/L (136-145); eGFR For Non-African Americans > 60 (> 60)
[2018-02-18 06:07] LABS: Thyroid Stimulating Hormone 5.711 mcIU/mL (0.340-5.600)
[2018-02-18 06:39] LABS: Hematocrit 30.4 % (35.3-44.9); Red Cell Distribution Width 14.8 % (11.5-14.5)
[2018-02-18 06:41] LABS: Hemoglobin 9.7 g/dL (11.5-15.4); Immature Platelets 3.8 % (1.1-6.1); Mean Corpuscular HGB Conc 31.9 g/dL (31.6-35.5); Mean Corpuscular Hemoglobin 32.3 pg (28.0-33.3); Mean Corpuscular Volume 101.3 fL (83.0-100.0); Mean Platelet Volume 9.9 fL (9.4-12.4)
--- NOTE | 2018-02-18 10:59 | Internal Med Progress Note ---
Hospitalist Progress Note - Encounter Date of Encounter: 02/18/18 Time of Encounter: 09:45 - Subjective Interval History: Patient is lying in bed. She denies any dizziness or lightheadedness. She complains of urinary incontinence. She reports that she fell after slipping in her own urine while she was using the restroom. She keeps stating that she does not need any more help and she has enough help at home from someone who comes and helps her with laundry. She still drives around. However during the conversation, she kept talking about her activities and it sounds like she has a tough time managing her activities of daily living by herself. And I finally asked her if she would talk to social media project manager to see if we can get her any further help, she agreed to it. - Exam Vitals: Temp Pulse Resp BP Pulse Ox 98.9 F 62 16 147/67 96 02/18/18 07:06 02/18/18 07:06 02/18/18 07:06 02/18/18 07:06 02/18/18 07:06 Exam: General: Patient is alert, no acute distress, oriented x 2, underweight Respiratory: Good respiratory effort. Normal breath sounds. No wheezing or crackles. Cardiovascular: Regular rate and rhythm. s1 and s2 normal Abdomen: Abdomen is soft, nontender. Bowel sounds are present Musculoskeletal: Spontaneously moving all extremities, multiple chronic arthritic changes in all extremities. Skin: warm, dry, intact. Neuro: Alert oriented x 2 normal cranial nerves, no focal deficits - Assessment and Plan (1) Fall Current Visit: Yes Status: Acute Assessment and Plan: Mechanical fall. Continue fall precautions. Physical therapy evaluation. ironworker apprentice consult. (2) Frail elderly Current Visit: Yes Status: Chronic Assessment and Plan: Evaluating the patient, I do think that she is not safe to be discharged home where she lives alone. However she does have decision-making capacity. She will be evaluated by physical therapy. ironworker apprentice consult has also been placed. (3) Hypothyroidism Current Visit: No Status: Chronic Assessment and Plan: Continue levothyroxine (4) Osteoporosis Current Visit: Yes Status: Chronic Assessment and Plan: Continue home medications. Follow-up outpatient with PCP. (5) Severe protein-calorie malnutrition Current Visit: Yes Status: Acute Assessment and Plan: Nutrition consult placed. Encourage oral diet and supplements. (6) Hematuria Current Visit: Yes Status: Acute Assessment and Plan: Will repeat urinalysis. DVT Prophylaxis: On SCDs - Time Spent with Patient Total time spent is greater than 50% in coordination of care (as documented) at patient's floor/unit and/or counseling patient: Internal Medicine: Result - Labs CBC & Chem 7: 02/18/18 06:19 02/18/18 05:12 Labs: Short CBC 02/18/18 Range/Units 06:19 WBC 6.4 (4.3-11.1) K/mcL Hgb 9.7 L D (11.5-15.4) g/dL Hct 30.4 L (35.3-44.9) % Plt Count 85 L (140-400) K/mcL BMP 02/18/18 05:12 Sodium 147 H Potassium 3.8 Chloride 109 H Carbon Dioxide 35 H BUN 22 Creatinine 0.61 Glucose 115 H Calcium 8.7 Liver Function 02/17/18 Range/Units 11:19 Total Bilirubin 0.5 (0.3-1.0) mg/dL Direct Bilirubin 0.1 (0.0-0.2) mg/dL AST 40 H (13-39) Units/L ALT 37 (7-52) Units/L Alkaline Phosphatase 45 (34-104) Units/L Albumin 3.8 (3.5-5.7) g/dL Consult Discharge Plan - Plan Referrals: Geoffrey Rudolph MD [Primary Care Provider] - (1) Fall Qualifiers: Encounter type: initial encounter Qualified Code(s): W19.XXXA - Unspecified fall, initial encounter (3) Hypothyroidism Qualifiers: Hypothyroidism type: unspecified Qualified Code(s): E03.9 - Hypothyroidism, unspecified (4) Osteoporosis Qualifiers: Osteoporosis type: unspecified Presence of current pathological fracture: without current pathological fracture Qualified Code(s): M81.0 - Age-related osteoporosis without current pathological fracture (6) Hematuria Qualifiers: Hematuria type: other microscopic Qualified Code(s): R31.29 - Other microscopic hematuria; R31.2 - Other microscopic hematuria
[2018-02-18] MEDS ORDERED: D5% in 0.45% NACL 1,000 ML IVC SCH (11:00)
[2018-02-18] MEDS ORDERED: *HR* Heparin 5,000 UNIT/ML VIAL SQ SCH (18:00)
[2018-02-18] MEDS ORDERED: Ondansetron 4 MG/2 ML VIAL IVP ONE (21:18)
[2018-02-19 00:36] VITALS: BP 159/69
[2018-02-19] MEDS ORDERED: Multivit/Ca/Min/Fe/FA 1 TAB TABLET PO SCH (09:00)
[2018-02-19] MEDS ORDERED: D5% in 0.45% NACL 1000 ML IV SOLUTION IVC ONE (11:39)
[2018-02-19] MEDS ORDERED: Multivit/Ca/Min/Fe/FA 1 TAB TABLET PO ONE (11:39)
[2018-02-19 11:40] LABS: Basophils % 0.2 %; Hematocrit 29.4 % (35.3-44.9); Hemoglobin 9.1 g/dL (11.5-15.4); Immature Granulocytes % 0.2 % (0-4); Immature Platelets 5.3 % (1.1-6.1); Lymphocytes # 0.3 K/mcL (0.6-4.6); Lymphocytes % 5.4 %; Mean Corpuscular Hemoglobin 31.9 pg (28.0-33.3); Mean Corpuscular Volume 103.2 fL (83.0-100.0); Mean Platelet Volume 10.7 fL (9.4-12.4); Monocytes # 0.4 K/mcL (0.0-1.3); Monocytes % 6.3 %; Red Blood Count 2.85 M/mcL (3.82-4.97); Red Cell Distribution Width 14.9 % (11.5-14.5); Segmented Neutrophils % 87.9 %
[2018-02-19 12:22] LABS: BUN/Creatinine Ratio 43 (6-26); Blood Urea Nitrogen 17 mg/dL (8-23); Calcium 8.5 mg/dL (8.6-10.3); Carbon Dioxide 31 mEq/L (23-29); Chloride 109 mEq/L (98-107); Glucose 139 mg/dL (70-105); Osmolality,Calculated 298 (280-300); Potassium 3.7 mEq/L (3.5-5.1); Sodium 142 mEq/L (136-145); eGFR For Non-African Americans > 60 (> 60)
[2018-02-19 12:59] LABS: Platelet Count 78 K/mcL (140-400)
--- NOTE | 2018-02-19 13:05 | Discharge Summary ---
- NOTES TO OUTPATIENT PROVIDER Notes to Outpatient Provider: Elderly female patient with history of chronic arthritis who was hospitalized here after a fall after she slipped on a wet floor. Patient is very underweight and has protein calorie malnutrition. She was evaluated by physical therapy and recommended placement to skilled re habilitation. She will be discharged to skilled rehabilitation today. She did have elevated TSH and so her levothyroxine dosage has been increased. Date of Encounter: 02/19/18 Time of Encounter: 08:40 - Discharge Diagnosis (1) Fall Priority: Primary Status: Acute Qualifiers: Encounter type: initial encounter Qualified Code(s): W19.XXXA - Unspecified fall, initial encounter (2) Frail elderly Priority: Secondary Status: Chronic (3) Hypothyroidism Priority: Secondary Status: Chronic Qualifiers: Hypothyroidism type: unspecified Qualified Code(s): E03.9 - Hypothyroidism, unspecified (4) Osteoporosis Priority: Secondary Status: Chronic Qualifiers: Osteoporosis type: unspecified Presence of current pathological fracture: without current pathological fracture Qualified Code(s): M81.0 - Age-related osteoporosis without current pathological fracture (5) Severe protein-calorie malnutrition Priority: Secondary Status: Acute (6) Hematuria Priority: Secondary Status: Resolved Assessment and Plan: From traumatic catheterization Qualifiers: Hematuria type: other microscopic Qualified Code(s): R31.29 - Other microscopic hematuria; R31.2 - Other microscopic hematuria Hospital course: Ms. Wakefield is a 83 year old female patient with history of chronic arthritis who was hospitalized here after a fall after she slipped on a wet floor. Patient is very underweight and has protein calorie malnutrition. She was evaluated by physical therapy and recommended placement to skilled rehabilitation. She will be discharged to skilled rehabilitation today. She did have elevated TSH and so her levothyroxine dosage has been increased. She has been evaluated by nutrition and recommended supplemental nutrition with ensure. Patient is tolerating diet well. No signs of infection were identified. Patient does have chronic anemia. She also had had hyponatremia which resolved with IV hydration. She will follow up with her primary care provider for further management Discharge discussed with: patient, nurse, case management - Time Spent with Patient Total time spent providing and/or coordinating discharge services: Less than 30 minutes (25 min) - Discharge Medications Home Medications: Alendronate Sodium [Fosamax] 70 mg PO MO 08/14/16 [History] Calcium Carbonate/Vitamin D3 [Calcium 500-Vit D3 600 Tablet] 1 tab PO DAILY 08/14/16 [History] Levothyroxine [Synthroid] 25 mcg PO DAILY 08/14/16 [History] Multivit-Min/Iron/Folic/Lutein [Centrum Silver Women Tablet] 1 tab PO DAILY 08/14/16 [History] [place]-3/Dha/Epa/Fish Oil [Fish Oil 1,000 mg Softgel] 1,000 mg PO DAILY 08/14/16 [History] Cyclosporine [Restasis] 1 drop BOTH EYES DAILY 02/17/18 [History] Allergies/Adverse Reactions: Allergy/AdvReac Type Severity Reaction Status Date / Time Erythromycin Base AdvReac Diarrhea Verified 08/14/16 14:20 Date of admission: 02/17/18 09:39 Primary care physician: Geoffrey Rudolph MD Consults: 02/17/18 09:30 Consult to Occupational Therapy [CONS] Routine Comment: Evaluate, develop and implement POC Reason for Consult: frequent falls Does patient have active BEDREST order?: No Is patient medically & hemodynamically stable?: Yes 02/17/18 09:31 Consult to Physical Therapy [CONS] Routine Comment: Evaluate, develop and implement POC Reason for Consult: frequent falls. Does patient have active BEDREST order?: No Is patient medically & hemodynamically stable?: Yes Consult to Product Safety Test Engineer [CONS] Routine Reason for SW Consult: patient might need placement. No social support. 02/17/18 11:32 Consult to Nutrition [CONS] Routine Comment: Consulting Provider: NUTRITION Reason for Dietary Consult: MST Score Consult to Pastoral Services [CONS] Routine Comment: Discharging clinician: Genaro Mares Anticipated date of discharge: 02/19/18 - Constitutional Vitals: Temp Pulse Resp BP Pulse Ox 98.3 F 75 16 159/69 93 02/19/18 00:35 02/19/18 00:35 02/19/18 00:35 02/19/18 00:35 02/19/18 00:35 General appearance: Present: cooperative, A&O X 3, underweight, answers questions appropriately Exam: General: Patient is alert, no acute distress, oriented x 3 Respiratory: Good respiratory effort. Normal breath sounds. No wheezing or crackles. Cardiovascular: Regular rate and rhythm. s1 and s2 normal . systolic murmur present Abdomen: Abdomen is soft, nontender. Bowel sounds are present Musculoskeletal: Spontaneously moving all extremities . Patient has multiple arthritic changes in her extremities Skin: warm, dry, intact. Neuro: Alert oriented x 3 normal cranial nerves, no focal deficits - Patient Status Disposition: Transfer SNF Condition: Good Functional capacity at discharge: bed bound Overall status at discharge: patient is progressing back to baseline - Discharge Instructions Follow Up With: Geoffrey Rudolph MD [Primary Care Provider] - (In 1-2 weeks) - Diet and Activity Activity: as per physical therapy Diet: advance to your usual diet
--- NOTE | 2018-02-19 13:09 | Event Note ---
Date of Encounter: 02/19/18 Time of Encounter: 13:09 Paper discharge referral completed due to [facility] downtime
--- NOTE | 2018-02-19 16:12 | Electrocardiograph Report ---
[place] [id number] Test Date: 2018-02-17 Pat Name: Ju Wakefield Department: EXAM2 Room: [facility] Gender: F Quality Control Systems Manager: : [id number] Requested By: Georgi Mckoy Order Number: [id number] Reading MD: Arlin Grider Measurements Intervals [place] Rate: 57 P: 228 MN: 162 QRS: 56 QRSD: 90 T: 60 QT: 443 QTc: 432 Interpretive Statements Sinus or ectopic atrial rhythm Low voltage, extremity leads Abnormal R-wave progression, early transition Baseline wander Electronically Signed On 02-19-2018 16:11:20 EDT by Arlin Grider
== END 2018-02-19 11:40 ==
LOC: 3NENU 06:45 → EMEROOARM 06:45 → SUATTDRO 09:39 → 3NENU 10:25
PROVIDERS: ADMIT Internal Medicine; ATTEND Internal Medicine